=== PATIENT | male | born 1955 | race Two or more races ===

== ENCOUNTER 2020-03-03 11:16 | Emergency (ER) | payer OTHER ==
[~2020-03-03] VITALS: Ht 167.6 cm; Wt 78.0 kg
--- NOTE | 2020-03-03 11:27 | NUR ---
PATIENT WALKED BACK FROM TRIAGE WITH CHIEF COMPLAINT OF RIGHT ANKLE INJURY AND PAIN. PATIENT FELL OUT OF HIS TRUCK ON FRIDAY AND LANDED ON HIS RIGHT ANKLE, PAIN LEVEL NOW IS A 7/10. PER PATIENT SWELLING HAS DECREASED. PATIENT CONNECTED TO VITAL SIGN MACHINE, CALL LIGHT WITHIN REACH.
[2020-03-03] MEDS ORDERED: TAMS-11 PO (11:32)
[2020-03-03] MEDS ORDERED: TRAZ-175 PO (11:32)
--- NOTE | 2020-03-03 11:55 | NUR ---
ICE PACK APPLIED TO RIGHT ANKLE, AND RIGHT ANKLE ELEVATED. FAN RUNNER AT BEDSIDE.
[2020-03-03 12:17] VITALS: BP 113/73
--- NOTE | 2020-03-03 12:53 | NUR ---
ER FELIBERTO zamarripa at bedside to discuss POC.
--- NOTE | 2020-03-03 13:17 | NUR ---
Patient given discharge instructions and prescription and they have confirmed that they understand the instructions, no questions. All patient belongings gathered by patient. Patient ambulatory with steady gait and use of cane to discharge desk.
== END 2020-03-03 13:18 | disposition home or self-care (01) ==
LOC: ED 13:00
DX: S93.491A Sprain of other ligament of right ankle, initial encounter (principal); E78.5 Hyperlipidemia, unspecified; W01.0XXA Fall on same level from slipping, tripping and stumbling without subsequent striking against object, initial encounter; Y93.89 Activity, other specified; Y92.098 Other place in other non-institutional residence as the place of occurrence of the external cause; Y99.8 Other external cause status
CPT/HCPCS: 99283